=== PATIENT | female | born 1980 | race African-American/Black ===

== ENCOUNTER 2019-03-23 21:12 | Emergency (ER) | payer MEDICARE, OTHER ==
[~2019-03-23] VITALS: Ht 170.2 cm; Wt 108.9 kg
[~2019-03-23 21:12] MED LIST: (None)20 M1 PO; ALBU90OI INH; ALBU90OI6 INH; ALBU90OI61 INH; AZIT250 PO; Bactrim Ds Tab1 EACH PO; CEPH500 PO; CIPRSO; CODGUAEL PO; DICL25ER PO; DULO60 PO; FLUSAL2505 IH; FLUSAL2505 INH; GUAI600T33 PO; IBUP800 PO; MECL12.5 PO; Mucinex600 MG PO; OXYACE5T PO; PRED10 PO; PROM25 PO; PSEU120ER PO; Prednisone20 MG PO; RXHYDACE PO; Robaxin500 MG PO; SULTRIDS PO; TOBDEXOPSU OP; TRAZ50 PO; Tobrex5 ML LEFTEYE; Zofran Odt4 MG SL; Zofran8 MG PO
[2019-03-23 22:11] LABS: Influenza A Negative (NEGATIVE); Influenza B Negative (NEGATIVE)
[2019-03-23] MEDS ORDERED: ONDA4ODT MM (22:53)
[2019-03-23] MEDS ORDERED: BENZ100A PO (22:53)
[2019-03-23] MEDS ORDERED: Zithromax250 MG PO (22:53)
== END 2019-03-23 23:33 | disposition home or self-care (01) ==
LOC: ER 21:12
PROVIDERS: Physician Assistant
DX: J44.0 Chronic obstructive pulmonary disease with (acute) lower respiratory infection (principal); J20.9 Acute bronchitis, unspecified; I10 Essential (primary) hypertension; F17.210 Nicotine dependence, cigarettes, uncomplicated; Z88.0 Allergy status to penicillin; Z79.51 Long term (current) use of inhaled steroids
CPT/HCPCS: 71046; 87804; 99283-25

== ENCOUNTER → 2020-06-30 | Outpatient (CLI) | payer MEDICARE, OTHER ==
[~2020-06-30] MED LIST changes: +AMLODIPINE BESYL5 MG PO; +Adderall 5mg tab5 MG PO; +BENZ100A PO; +ERYT.5TO LEFTEYE; +FLUTICASONE PRO16 GM; +K-TAB ER20 ME1 PO; +METF500 PO; +ONDA4ODT MM; +PSEUDOEPHEDRINE30 M4; +SULFAMETHOXAZO1 EAC1 PO; +Ventolin/Prove6.7 GM; +Ventolin/Prove6.7 GM INH; +ZOLOFT50 MG PO; +Zithromax250 MG PO
== END | disposition home or self-care (01) ==
LOC: LAB SHORT 10:21 → LAB EV 10:21
DX: J02.9 Acute pharyngitis, unspecified (principal)
CPT/HCPCS: 87081

== ENCOUNTER 2020-07-08 19:28 | Emergency (ER) | payer MEDICARE, OTHER ==
[~2020-07-08] VITALS: Ht 170.2 cm; Wt 117.9 kg
[~2020-07-08 19:28] MED LIST changes: -AMLODIPINE BESYL5 MG PO; -Adderall 5mg tab5 MG PO; -FLUTICASONE PRO16 GM; -K-TAB ER20 ME1 PO; -METF500 PO; -PSEUDOEPHEDRINE30 M4; -SULFAMETHOXAZO1 EAC1 PO; -Ventolin/Prove6.7 GM; -Ventolin/Prove6.7 GM INH; -ZOLOFT50 MG PO
[2020-07-08] MEDS ORDERED: PSEUDOEPHEDRINE30 M4 (20:33)
[2020-07-08] MEDS ORDERED: FLUTICASONE PRO16 GM (20:33)
[2020-07-08] MEDS ORDERED: Ventolin/Prove6.7 GM (20:33)
== END 2020-07-09 00:15 | disposition home or self-care (01) ==
LOC: ER 19:28
DX: S05.02XA Injury of conjunctiva and corneal abrasion without foreign body, left eye, initial encounter (principal); I10 Essential (primary) hypertension; F17.210 Nicotine dependence, cigarettes, uncomplicated; Z88.0 Allergy status to penicillin; Z79.899 Other long term (current) drug therapy; X58.XXXA Exposure to other specified factors, initial encounter
CPT/HCPCS: 99283; A9270

== ENCOUNTER → 2020-09-24 | Outpatient (CLI) | payer MEDICARE, OTHER ==
[~2020-09-24] MED LIST changes: +AMLODIPINE BESYL5 MG PO; +Adderall 5mg tab5 MG PO; +FLUTICASONE PRO16 GM; +K-TAB ER20 ME1 PO; +METF500 PO; +PSEUDOEPHEDRINE30 M4; +SULFAMETHOXAZO1 EAC1 PO; +Ventolin/Prove6.7 GM; +Ventolin/Prove6.7 GM INH; +ZOLOFT50 MG PO
== END | disposition home or self-care (01) ==
LOC: LAB SHORT 16:47 → LAB EV 16:47
DX: N39.0 Urinary tract infection, site not specified (principal)
CPT/HCPCS: 87086

== ENCOUNTER 2020-09-25 20:17 | Emergency (ER) | payer MEDICARE, OTHER ==
[~2020-09-25] VITALS: Ht 170.2 cm; Wt 117.9 kg
[~2020-09-25 20:17] MED LIST changes: -AMLODIPINE BESYL5 MG PO; -Adderall 5mg tab5 MG PO; -K-TAB ER20 ME1 PO; -METF500 PO; -SULFAMETHOXAZO1 EAC1 PO; -Ventolin/Prove6.7 GM INH; -ZOLOFT50 MG PO
[2020-09-25 21:10] LABS: BASOPHILS ABSOLUTE AUTO 0.03 K/mm3 (0.00-0.23); BASOPHILS PERCENT AUTO 0 % (0-2); EOSINOPHILS ABSOLUTE AUTO 0.24 K/mm3 (0.00-0.68); EOSINOPHILS PERCENT AUTO 4 % (0-6); Hematocrit 37.3 % (33.0-51.0); Hemoglobin 11.9 g/dL (11.5-16.0); IMMATURE GRAN ABSOLUTE AUTO 0.01 K/mm3 (0.00-0.10); IMMATURE GRAN PERCENT AUTO 0 % (0-1); LYMPHOCYTES ABSOLUTE AUTO 2.27 K/mm3 (0.84-5.20); LYMPHOCYTES PERCENT AUTO 33 % (21-46); MONOCYTES ABSOLUTE AUTO 0.32 K/mm3 (0.16-1.47); MONOCYTES PERCENT AUTO 5 % (4-13); Mean Corpuscular HGB 26.7 pg (26.0-34.0); Mean Corpuscular HGB Conc 31.9 g/dL (31.5-36.5); Mean Corpuscular Volume 84 fL (80-100); Mean Platelet Volume 10.7 fL (9.1-12.4); NEUTROPHILS ABSOLUTE AUTO 4.05 K/mm3 (1.96-9.15); NEUTROPHILS PERCENT AUTO 59 % (41-73); Platelet Count 278 K/mm3 (150-400); RDW Coefficient Variation 16.8 % (11.7-14.2); RDW Standard Deviation 51.3 fL (35.1-46.3); Red Blood Cell Count 4.45 M/mm3 (3.80-5.20); White Blood Cell Count 6.92 K/mm3 (4.00-11.30)
[2020-09-25 21:34] LABS: Alanine Aminotransfer (ALT/SGP 26 U/L (12-78); Albumin, Blood 3.3 g/dL (3.4-5.0); Albumin/Globulin Ratio 0.8 (0.8-1.8); Alk Phos 66 U/L (50-136); Anion Gap 6 mmol/L (6-16); Aspartate Aminotrans (AST/SGOT 26 U/L (12-37); Bilirubin, Total 0.3 mg/dL (0.1-1.0); Blood Urea Nitrogen 8 mg/dL (8-24); Bun/Creatinine Ratio 9.2 (12.0-20.0); CO2, Blood 26 mmol/L (21-32); Calcium, Blood 8.2 mg/dL (8.5-10.1); Chloride, Blood 106 mmol/L (98-108); Creatinine, Blood 0.87 mg/dL (0.40-1.00); Globulin, Blood 4.3 g/dL (2.2-4.0); Glomerular Filtration Rate >60 (60-); Glucose, Blood 140 mg/dL (70-99); Magnesium, Blood 2.1 mg/dL (1.6-2.4); Potassium, Blood 3.3 mmol/L (3.5-5.5); Sodium, Blood 138 mmol/L (136-145); Total Protein, Blood 7.6 g/dL (6.4-8.2)
[2020-09-25] MEDS ORDERED: SULFAMETHOXAZO1 EAC1 PO (21:39)
[2020-09-25] MEDS ORDERED: METF500 PO (21:39)
[2020-09-25] MEDS ORDERED: ZOLOFT50 MG PO (21:40)
[2020-09-25] MEDS ORDERED: Adderall 5mg tab5 MG PO (21:40)
[2020-09-25] MEDS ORDERED: AMLODIPINE BESYL5 MG PO (21:40)
[2020-09-25] MEDS ORDERED: K-TAB ER20 ME1 PO (21:40)
[2020-09-25] MEDS ORDERED: Ventolin/Prove6.7 GM INH (21:41)
== END 2020-09-25 23:50 | disposition home or self-care (01) ==
LOC: ER 20:17
PROVIDERS: Physician Assistant
DX: J06.9 Acute upper respiratory infection, unspecified (principal); N39.0 Urinary tract infection, site not specified; F41.9 Anxiety disorder, unspecified; I10 Essential (primary) hypertension; F17.210 Nicotine dependence, cigarettes, uncomplicated; Z88.0 Allergy status to penicillin; Z79.82 Long term (current) use of aspirin; Z79.899 Other long term (current) drug therapy
CPT/HCPCS: 36415; 80053; 83735; 85025; 99284; A9270

== ENCOUNTER → 2020-09-28 | Outpatient (CLI) | payer MEDICARE, OTHER ==
[~2020-09-28] MED LIST changes: +AMLODIPINE BESYL5 MG PO; +Adderall 5mg tab5 MG PO; +K-TAB ER20 ME1 PO; +METF500 PO; +SULFAMETHOXAZO1 EAC1 PO; +Ventolin/Prove6.7 GM INH; +ZOLOFT50 MG PO
[2020-09-29 11:18] LABS: Candida species (DNA Probe) Negative (NEGATIVE); G. vaginalis (DNA Probe) Positive (NEGATIVE); T. vaginalis (DNA Probe) Negative (NEGATIVE)
[2020-09-30 16:10] LABS: HPV 16 Negative (Negative); HPV 18 Negative (Negative); HPV OTHER HR TYPES Negative (Negative)
== END ==
LOC: LAB SHORT 15:19 → LAB 15:19
PROVIDERS: Family Medicine
DX: Z01.419 Encounter for gynecological examination (general) (routine) without abnormal findings (principal); N89.8 Other specified noninflammatory disorders of vagina
CPT/HCPCS: 87480; 87510; 87624; 87660; G0145

== ENCOUNTER 2024-11-02 11:21 | Day surgery (SDC) | payer MEDICARE, OTHER ==
[~2024-11-02 11:21] MED LIST changes: +CODEINE-GUAIFE120 M1 PO; +LEVO750 PO
[2024-11-02] MEDS ORDERED: LOSARTAN-HCTZ1 EAC5 PO (12:43)
[2024-11-02] MEDS ORDERED: OZEMPIC1 MG/0.72 INJ (12:43)
[2024-11-02] MEDS ORDERED: FLUTICASONE-SA1 EAC9 INH (12:44)
[2024-11-02 13:07] VITALS: BP 149/103
--- NOTE | 2024-11-02 13:38 | NUR ---
TO [facility] FOR PROCEDURE. PT REPORTS LAST DOSE OZEMPIC WAS ON 10/31 AND SHE WAS UNABLE TO COMPLETE HER PREP. PROCEDURE CX PER DR. PRUETT/NOLAN. DC'D IV INTACT. PT TO FOLLOW UP IN OFFICE.
== END 2024-11-02 23:00 | disposition home or self-care (01) ==
LOC: ORSCMMR 11:21 → ORD 12:30 → ORSCMMR 12:30
DX: Z12.11 Encounter for screening for malignant neoplasm of colon (principal); Z53.9 Procedure and treatment not carried out, unspecified reason
CPT/HCPCS: J7120

== ENCOUNTER 2024-11-22 13:46 | Day surgery (SDC) | payer MEDICARE, OTHER ==
[~2024-11-22] VITALS: Ht 167.6 cm; Wt 114.7 kg
[~2024-11-22 13:46] MED LIST changes: +FLUTICASONE-SA1 EAC9 INH; +LOSARTAN-HCTZ1 EAC5 PO; +OZEMPIC1 MG/0.72 INJ
[2024-11-22] MEDS ORDERED: OZEMPIC1 MG/0.72 SC (14:30)
[2024-11-22 14:40] VITALS: BP 149/92
[2024-11-22] MEDS ORDERED: FLUT1DIS5 INH (15:00)
[2024-11-22] MEDS ORDERED: Ipratropium/Albuterol SulF 2.5-0.5MG/3 ML Amp INH ONE (15:05)
--- NOTE | 2024-11-22 15:12 | NUR ---
Ambulatory in Day Surgery. Pre-Op teaching done. Pt verbalizes understanding. History, Chart, Medications and Allergies reviewed before start of procedure. Patient confirms NPO status and agrees with scheduled surgery. Patient States Post-Procedure ride home has been arranged.
--- NOTE | 2024-11-22 15:32 | NUR ---
11/22/24 1532 Kian Gomez ANESTHESIA CONSULT REQUESTED FOR BMI OF 40.8 AND A NEW DIAGNOSIS OF CATHERINE. PROCEDURE CHANGED FROM RN SEDATION TO MAC WITH ANESTHESIA. History, Chart, Medications and Allergies reviewed before start of procedure. MONITOR INTACT WITH CONTINUOUS PULSE OXIMETRY, CONTINUOUS END TITAL CO2, 3-LEAD EKG AND INTERMITTENT BLOOD PRESSURE. 3-LEAD EKG REVIEWED WITH PHYSICIAN PRIOR TO START OF PROCEDURE. O2 VIA POM INTACT THROUGHOUT SEDATION/PROCEDURE.
[2024-11-22 16:02] VITALS: BP 169/88
[2024-11-22 16:14] VITALS: BP 150/95
--- NOTE | 2024-11-22 16:47 | NUR ---
Discharge instructions reviewed with patient. Patient verbalizes understanding. Copy given to patient to take home. Discharged via wheelchair to private car for ride home.
[2024-11-22] MEDS ORDERED: Propofol 10mg/ml 20 ml Vial (Procedural) IV ONE (20:22)
== END 2024-11-22 16:30 | disposition home or self-care (01) ==
LOC: ORSCMMR 13:46 → ORD 15:00 → ORSCMMR 15:00
PROVIDERS: Family Medicine
PROC: 0DJD8ZZ Inspection of Lower Intestinal Tract, Via Natural or Artificial Opening Endoscopic (ICD-10-PCS; principal; 2024-11-22 15:00)
DX: Z12.11 Encounter for screening for malignant neoplasm of colon (principal); K57.30 Diverticulosis of large intestine without perforation or abscess without bleeding; J44.9 Chronic obstructive pulmonary disease, unspecified; I10 Essential (primary) hypertension; Z79.85 Long-term (current) use of injectable non-insulin antidiabetic drugs; Z79.899 Other long term (current) drug therapy; E66.01 Morbid (severe) obesity due to excess calories; Z68.41 Body mass index [BMI] 40.0-44.9, adult; F17.210 Nicotine dependence, cigarettes, uncomplicated
CPT/HCPCS: 82947; J2704; J7120